=== PATIENT | female | born 1950 | race Caucasian/White ===

== ENCOUNTER 2017-04-03 18:04 | Emergency (ER) | payer MEDICARE, OTHER ==
--- NOTE | 2017-04-03 20:00 | C.PDOC ---
History Of Present Illness 66 year old female who presents to the ER with a complaint of right buttock pain ongoing for the last month. Patient was admitted at [facility] on and had a multiple extensive CT work up that was negative. Patient's NSAID 's regiment was increased to 800mg of motrin multiple times a day and decadron 4mg daily. Patient reports she has been using a heating pad on her right buttock daily up to and including today. Denies fever, chills, weakness, or numbness. Time Seen by Provider: 04/03/17 19:45 Chief Complaint (Nursing): Back Pain History Per: Patient History/Exam Limitations: no limitations Onset/Duration Of Symptoms: Days Current Symptoms Are (Timing): Still Present Quality Of Discomfort: Unable To Describe Previous Symptoms: None Associated Symptoms: None Exacerbating Factor(s): Nothing Recent travel outside of the [place]: No Past Medical History Reviewed: Historical Data, Nursing Documentation, Vital Signs Vital Signs: Last Vital Signs Temp 98.1 F 04/03/17 21:42 Pulse 94 H 04/03/17 21:42 Resp 20 04/03/17 21:42 BP 137/80 04/03/17 21:42 Pulse Ox 95 04/03/17 21:42 - Medical History PMH: Anxiety, Arthritis, Diabetes, HTN, Hypercholesterolemia - [facility] Procedures INTRODUCTION OF SERUM/TOX/VACCINE INTO MUSCLE, PERC APPROACH (09/12/15) ULTRASONOGRAPHY OF RIGHT AND LEFT HEART, TRANSESOPHAGEAL (03/04/17) Family History: States: Unknown Family Hx - Social History Hx Alcohol Use: No Hx Substance Use: No - Immunization History Hx Tetanus Toxoid Vaccination: Yes Hx Influenza Vaccination: Yes Hx Pneumococcal Vaccination: Yes Review Of Systems Constitutional: Negative for: Fever, Chills Gastrointestinal: Negative for: Nausea, Vomiting Musculoskeletal: Positive for: Other (Right buttock pain) Neurological: Negative for: Weakness, Numbness Physical Exam - Physical Exam Appears: Non-toxic, No Acute Distress Skin: Normal Color, Warm, Dry Head: Atraumatic, Normacephalic Oral Mucosa: Moist Chest: Symmetrical, No Tenderness Cardiovascular: Rhythm Regular, No Murmur Respiratory: Normal Breath Sounds, No Rales, No Rhonchi, No Wheezing Gastrointestinal/Abdominal: Soft, No Tenderness Back: Other (Mild tenderness to right buttock area.) Extremity: Normal ROM (x4) Neurological/Psych: Oriented x3, Normal Speech, Normal Cognition ED Course And Treatment Progress Note: Ultram and pepcid administered. [place], patient is on an Alprazolam and Ambien regiment. Ice pack made by myself was applied to patient' s right buttock for 30 minutes. Medical Decision Making Medical Decision Making: chronic R buttock sciatica after d/c from [facility] 03/12 related to persistent heat therapies to R bottock Plain films, and CT of LS/Pelvis, CAP, all wnl 03/04 no indication to repeat now EXTENSIVE NSAIDS and steroids regimen (Decadron 4 mg daily, Motrin 800 mg) ice packs to R buttock 1/2 hour per hour, NOTHING HOT!!!! 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 Pt's anxiety disorder may be magnifying perception of this pain and disability Disposition Doctor Will See Patient In The: Office Counseled Patient/Family Regarding: Studies Performed, Diagnosis - Disposition Referrals: Acosta Riggs Jr., MD [Medical Doctor] - Disposition: HOME/ ROUTINE Disposition Time: 21:00 Condition: GOOD Additional Instructions: chronic R buttock sciatica after d/c from [facility] 03/12 related to persistent heat therapies to R bottock Plain films, and CT of LS/Pelvis, CAP, all wnl 03/04 no indication to repeat now EXTENSIVE NSAIDS and steroids regimen (Decadron 4 mg daily, Motrin 800 mg) HIGH risk for pituitary suppression, Dows Syndrome and GI bleeds instructed to STOP all steroids/NSAIDS now and focus on ice therapy 1/2 hour per hour, instructed and demonstrated pepcid 20 mg @ night to help PREVENT stomach irritation from all the NSAIDS and Steroids taken ice packs to R buttock 1/2 hour per hour, NOTHING HOT!!!! Follow-up with PMD to consider steroid taper in 2-3 days when buttock inflammation resolved. Pt's anxiety disorder may be magnifying perception of this pain and disability Instructions: Sciatica (ED) Forms: [employer] (Spanish) Print Language: THAI - Clinical Impression Clinical Impression: Sciatica - Scribe Statement The provider has reviewed the documentation as recorded by the Scribe Roosevelt Cage All medical record entries made by the Scribe were at my direction and personally dictated by me. I have reviewed the chart and agree that the record accurately reflects my personal performance of the history, physical exam, medical decision making, and the department course for this patient. I have also personally directed, reviewed, and agree with the discharge instructions and disposition.
[2017-04-03 21:43] VITALS: BP 137/80; PULSE 94; RESP 20; TEMP 98.1; O2SAT 95
== END 2017-04-03 21:42 | disposition home or self-care (01) ==
LOC: C.ER 18:04
DX: M54.30 Sciatica, unspecified side (principal)

== ENCOUNTER 2017-06-21 08:06 | Emergency (ER) | payer MEDICARE, OTHER ==
[2017-06-21 08:16] VITALS: O2SAT 99
--- NOTE | 2017-06-21 08:58 | C.PDOC ---
History Of Present Illness 66 yo female with history of HTN, DM2, HLD and OA, recent hx of L-spine abscess s/p surgical treatment, wheel chair bound, come in accompanied by daughter for evaluation of urinary retention developed for past 5-6 weeks. As per daughter, was referred by PMD for Urology consult/evaluation due to urinary retention to "and office told me go to ED for evaluation". As per daughter, pt has James cath currently for past 6 weeks, " placed in Rehab". Otherwise, pt and daughter denies any other active complaints. Pt appears comfortable, not in any apparent distress. Time Seen by Provider: 06/21/17 08:16 Chief Complaint (Nursing): Medical Clearance History Per: Patient, Family (Daughter) History/Exam Limitations: no limitations Onset/Duration Of Symptoms: Days (5-6 weeks) Past Medical History Reviewed: Historical Data, Nursing Documentation, Vital Signs Vital Signs: Last Vital Signs Temp 98.7 F 06/21/17 11:32 Pulse 98 H 06/21/17 11:32 Resp 20 06/21/17 11:32 BP 111/67 06/21/17 11:32 Pulse Ox 99 06/21/17 11:32 - Medical History PMH: Anxiety, Arthritis, Back Problems, Diabetes, HTN, Hypercholesterolemia - [facility] Procedures INTRODUCTION OF SERUM/TOX/VACCINE INTO MUSCLE, PERC APPROACH (09/12/15) ULTRASONOGRAPHY OF RIGHT AND LEFT HEART, TRANSESOPHAGEAL (03/04/17) Family History: States: No Known Family Hx - Social History Hx Alcohol Use: No Hx Substance Use: No - Immunization History Hx Tetanus Toxoid Vaccination: Yes Hx Influenza Vaccination: Yes Hx Pneumococcal Vaccination: Yes Review Of Systems Except As Marked, All Systems Reviewed And Found Negative. Constitutional: Negative for: Fever Cardiovascular: Negative for: Chest Pain Respiratory: Negative for: Shortness of Breath Genitourinary: Positive for: Other ((+) Urinary retention) Physical Exam - Physical Exam Appears: Well, Non-toxic, No Acute Distress Skin: Normal Color, Warm, No Rash Head: Normacephalic Eye(s): bilateral: PERRL Nose: No Discharge Oral Mucosa: Moist Throat: No Drooling Neck: Trachea Midline, Supple Cardiovascular: Rhythm Regular Respiratory: No Decreased Breath Sounds, No Accessory Muscle Use, No Rales, No Rhonchi Gastrointestinal/Abdominal: Soft, No Tenderness, No Distention, No Guarding Back: No CVA Tenderness Pelvic: Other ((+) James cath) Extremity: No Deformity, No Swelling, Other (B?L LEs muscle wasting) Neurological/Psych: Oriented x3, Normal Speech, Normal Motor, Normal Sensation, Normal Reflexes ED Course And Treatment - Laboratory Results Result Diagrams: 06/21/17 09:29 06/21/17 09:29 Lab Interpretation: No Acute Changes O2 Sat by Pulse Oximetry: 99 (RA) Pulse Ox Interpretation: Normal Progress Note: AT 9:02, called , second attempt. Requested Blood work , UA, Ucx, " will see patient in ED shortly". Pt was seen at 11:28AM by , evaluated pt in ED, and discharge with outpt f/u recommend at this time. UA results review (+)nitrate. Ucx-pening. Results review and discussed with pt and family. Pt is stable for discharge and outpt f/u now with . Medical Decision Making Medical Decision Making: PLAN: * CBC * CMP * Urinalysis Disposition Counseled Patient/Family Regarding: Diagnosis, Need For Followup, Rx Given - Disposition Referrals: Emily Bond MD [Staff Provider] - Disposition: HOME/ ROUTINE Disposition Time: 11:29 Condition: STABLE Additional Instructions: TAKE MEDICATION PRESCRIBED FOLLOW UP WITH UROLOGY SCHEDULED FOR FURTHER EVALUATION AND TREATMENT. RETURN TO ED IF ANY WORSENING OR NEW CHANGES. Prescriptions: Nitrofurantoin Macrocrystals [Macrobid] 1 cap PO BID #14 cap Instructions: Urinary Tract Infection in Women (ED), James Catheter Placement and Care (ED), Chronic Urinary Retention in Women (ED) Forms: [employer] (Argentine) - Clinical Impression Clinical Impression: UTI (urinary tract infection), Urinary retention, James catheter present - PA / [employer] OPERATOR / Resident Statement MD/DO has reviewed & agrees with the documentation as recorded. - Scribe Statement The provider has reviewed the documentation as recorded by the Scribe Susan Macias All medical record entries made by the Scribe were at my direction and personally dictated by me. I have reviewed the chart and agree that the record accurately reflects my personal performance of the history, physical exam, medical decision making, and the department course for this patient. I have also personally directed, reviewed, and agree with the discharge instructions and disposition.
[2017-06-21 09:35] LABS: BASO % 0.1 % (0.0-2.0); EOS # 0.3 K/uL (0.0-0.7); EOS % 2.3 % (0.0-4.0); HEMATOCRIT 29.6 % (34.0-47.0); LYMPH # 3.2 K/uL (1.0-4.3); LYMPH % 25.5 % (20.0-40.0); MEAN CELL VOLUME 76.1 fL (81.0-99.0); MEAN CORPUSCULAR HEMOGLOBIN 24.1 pg (27.0-31.0); MEAN CORPUSCULAR HGB CONC 31.6 g/dL (33.0-37.0); MEAN PLATELET VOLUME 7.6 fL (7.2-11.7); MONO % 7.9 % (0.0-10.0); WHITE BLOOD COUNT 12.6 K/uL (4.8-10.8)
[2017-06-21 09:51] LABS: ALB/GLOB RATIO 0.9 (1.0-2.1); ALKALINE PHOSPHATASE 102 U/L (38-126); ALT/SGPT 22 U/L (9-52); AST/SGOT 17 U/L (14-36); BILIRUBIN,TOTAL 0.5 mg/dL (0.2-1.3); BLOOD UREA NITROGEN 10 mg/dL (7-17); CALCIUM 8.6 mg/dl (8.6-10.4); CARBON DIOXIDE 30 mmol/L (22-30); CHLORIDE 101 mmol/L (98-107); GFR AFRICAN-AMERICAN > 60; GLUCOSE,RANDOM 219 mg/dL (65-105); POTASSIUM 3.7 mmol/L (3.6-5.2); SODIUM 139 mmol/L (132-148); TOTAL PROTEIN 7.8 g/dL (6.3-8.3)
[2017-06-21 10:01] LABS: RBC URINE 1 /hpf (0-3); URINE BACTERIA OCC (<OCC); URINE BILIRUBIN NEGATIVE (NEGATIVE); URINE BLOOD 1+ (NEGATIVE); URINE COLOR Yellow (YELLOW); URINE GLUCOSE (UA) NORMAL (Normal); URINE KETONE NEGATIVE (NEGATIVE); URINE LEUKOCYTE ESTERASE 3+ Leu/uL (Negative); URINE PROTEIN 2+ mg/dL (NEGATIVE); URINE UROBILINOGEN NORMAL mg/dL (0.2-1.0); WBC URINE 95 /hpf (0-5)
[2017-06-21 11:33] VITALS: BP 111/67; PULSE 98; RESP 20; TEMP 98.7
--- NOTE | 2017-06-21 23:40 | C.PDOC ---
Time Seen by Provider: 06/21/17 08:16 Chief Complaint (Nursing): Medical Clearance Past Medical History Vital Signs: Last Vital Signs Temp 98.7 F 06/21/17 11:32 Pulse 98 H 06/21/17 11:32 Resp 20 06/21/17 11:32 BP 111/67 06/21/17 11:32 Pulse Ox 99 06/21/17 17:35 - Medical History PMH: Anxiety, Arthritis, Back Problems, Diabetes, HTN, Hypercholesterolemia Denies: HIV, Chronic Kidney Disease - [facility] Procedures INTRODUCTION OF SERUM/TOX/VACCINE INTO MUSCLE, PERC APPROACH (09/12/15) ULTRASONOGRAPHY OF RIGHT AND LEFT HEART, TRANSESOPHAGEAL (03/04/17) Family History: States: No Known Family Hx, Unknown Family Hx - Social History Hx Alcohol Use: No Hx Substance Use: No - Immunization History Hx Tetanus Toxoid Vaccination: Yes Hx Influenza Vaccination: Yes Hx Pneumococcal Vaccination: Yes ED Course And Treatment - Laboratory Results Result Diagrams: 06/21/17 09:29 06/21/17 09:29 O2 Sat by Pulse Oximetry: 99 (RA) Medical Decision Making Medical Decision Making: Imp: urinary retention hx of vertebral osteomyelitis anemia full note t/f discussed with ER sataff Discussed w pt and her daughter Will schedule for cysto , UD, cystogram. YS Disposition - Disposition Referrals: Emily Bond MD [Staff Provider] - Disposition: HOME/ ROUTINE Disposition Time: 10:30 Condition: STABLE Additional Instructions: TAKE MEDICATION PRESCRIBED FOLLOW UP WITH UROLOGY SCHEDULED FOR FURTHER EVALUATION AND TREATMENT. RETURN TO ED IF ANY WORSENING OR NEW CHANGES. Prescriptions: Nitrofurantoin Macrocrystals [Macrobid] 1 cap PO BID #14 cap Instructions: Urinary Tract Infection in Women (ED), Raines Catheter Placement and Care (ED), Chronic Urinary Retention in Women (ED) Forms: [email or web address] (Spanish) - Clinical Impression Clinical Impression: UTI (urinary tract infection), Urinary retention, Raines catheter present
== END 2017-06-21 11:56 | disposition home or self-care (01) ==
LOC: C.ER 08:06
DX: N39.0 Urinary tract infection, site not specified (principal); R33.9 Retention of urine, unspecified; E11.9 Type 2 diabetes mellitus without complications; E78.00 Pure hypercholesterolemia, unspecified; I10 Essential (primary) hypertension; M19.90 Unspecified osteoarthritis, unspecified site; Z99.3 Dependence on wheelchair

== ENCOUNTER 2017-12-06 07:39 | Day surgery (SDC) | payer MEDICARE, OTHER ==
[2017-12-06 09:02] VITALS: TEMP 97
[2017-12-06] MEDS ORDERED: Sodium Chloride 0.9% 500 ML IV ONE (10:15)
[2017-12-06] MEDS ORDERED: Lactated Ringer's 1,000 ML IV ONE (11:14)
[2017-12-06] MEDS ORDERED: Lidocaine 4% (Laryng-O-Jet) Kit MM ONE (11:23)
[2017-12-06] MEDS ORDERED: Midazolam 2 MG/2 ML VIAL ONE (11:27)
[2017-12-06] MEDS ORDERED: Propofol 10 mg/ml Inj (20 ML) ONE (11:27)
[2017-12-06] MEDS ORDERED: Lidocaine Hydrochloride 5 ML INJ ONE (11:53)
[2017-12-06 12:35] VITALS: RESP 18
[2017-12-06 12:58] VITALS: O2SAT 99
[2017-12-06 13:44] VITALS: BP 106/52; PULSE 88
== END 2017-12-06 13:30 | disposition home or self-care (01) ==
LOC: C.ENDO 07:39
PROVIDERS: ATTEND Internal Medicine Gastroenterology
DX: K21.9 Gastro-esophageal reflux disease without esophagitis (principal); K57.32 Diverticulitis of large intestine without perforation or abscess without bleeding; K64.1 Second degree hemorrhoids; K29.70 Gastritis, unspecified, without bleeding
CPT/HCPCS: 43239; 45378; 82948; 88305; 88342; J2250; J2704; J3010; J7040; J7120